=== PATIENT | female | born 1975 | race Caucasian/White ===

== ENCOUNTER → 2021-12-27 | Day surgery (SDC) | payer BC ==
[~2021-12-27] MED LIST: TRAZODONE HCL100 MG PO; VILAZODONE HCL10 MG PO; VRAYLAR1.5 MG PO
== END | disposition home or self-care (01) ==
LOC: OR 06:21
DX: S92.352A Displaced fracture of fifth metatarsal bone, left foot, initial encounter for closed fracture (principal); F41.9 Anxiety disorder, unspecified; F32.A Depression, unspecified; Z79.899 Other long term (current) drug therapy; Z88.8 Allergy status to other drugs, medicaments and biological substances; X58.XXXA Exposure to other specified factors, initial encounter
CPT/HCPCS: 73630; 76000; 84703; J0690; J1100; J1885; J2001; J2250; J2405; J2704; J2710; J2795; J3010; J3370

== ENCOUNTER → 2022-01-07 | Outpatient (CLI) | payer BC | LOC: KOH-I 09:18 | DX: S92.352A Displaced fracture of fifth metatarsal bone, left foot, initial encounter for closed fracture (principal) | CPT/HCPCS: 73630 ==

== ENCOUNTER → 2022-01-23 | Outpatient (CLI) | payer BC | LOC: KOH-I 10:29 | DX: S92.352D Displaced fracture of fifth metatarsal bone, left foot, subsequent encounter for fracture with routine healing (principal) | CPT/HCPCS: 73630 ==